=== PATIENT | male | born 1970 ===

== ENCOUNTER → 2018-07-08 13:34 | Outpatient (REF) | payer OTHER, SELFPAY ==
[2018-07-08 14:05] LABS: Alanine Aminotransferase 27 IU/L (21-72); Albumin 4.1 g/dL (3.5-5.0); Albumin Globulin Ratio 1.6 (1.0-2.8); Alkaline Phosphatase 64 U/L (38-126); Aspartate Aminotransferase 24 IU/L (17-59); BUN Creatinine Ratio 17.5 (6-22); Bilirubin Total 0.3 mg/dL (0.2-1.3); Blood Urea Nitrogen 14 mg/dL (9-20); Calcium 9.2 mg/dL (8.4-10.2); Carbon Dioxide 30 mmol/L (22-32); Chloride 102 mmol/L (98-107); Cholesterol 180 mg/dL (140-199); Estimated Glomerular Filt Rate > 60.0 mL/min (>60); Globulin 2.5 g/dL (1.7-4.1); Glucose 102 mg/dL (70-100); HDL Cholesterol 55 mg/dL (40-60); HEMOLYSIS 24 (0-50); LDL Cholesterol Calculated 97 mg/dL (<100); Potassium 4.6 mmol/L (3.4-5.1); Sodium 145 mmol/L (137-145); Total Protein 6.6 g/dL (6.3-8.2); Triglycerides 141 mg/dL (35-150)
[2018-07-08 14:33] LABS: Prostate Specific Antigen 0.888 ng/mL (0.10-4.00)
[2018-07-08 16:38] LABS: Hep C Virus Ab w/Reflex Quant NEGATIVE s/c (NEGATIVE)
[2018-07-08 16:39] LABS: HIV 1 and 2 Antibody NEGATIVE (NEGATIVE)
[2018-07-08 21:09] LABS: Urine N gonorrhoeae NOT DETECTED
[2018-07-08 22:09] LABS: Urine Chlamydia NOT DETECTED
[2018-07-10 13:03] LABS: RPR Screen Nonreactive (Nonreactive)
[2018-07-10 14:17] LABS: HSV 2 IGG AB < 0.90 index (< 0.90); HSV1IGG < 0.90 index (< 0.90)
== END ==
LOC: LAB 13:34
PROVIDERS: Visit Provider Family Medicine
DX: Z11.3 Encounter for screening for infections with a predominantly sexual mode of transmission (principal); Z11.4 Encounter for screening for human immunodeficiency virus [HIV]; Z12.5 Encounter for screening for malignant neoplasm of prostate; Z13.6 Encounter for screening for cardiovascular disorders; Z13.1 Encounter for screening for diabetes mellitus; Z13.228 Encounter for screening for other metabolic disorders; Z13.820 Encounter for screening for osteoporosis
CPT/HCPCS: 36415; 80053; 80061; 84153; 86592; 86695; 86696; 86703; 86803; 87491; 87591